=== PATIENT | female | born 1995 | race Two or more races ===

== ENCOUNTER 2018-05-17 12:14 | Emergency (ER) | payer MEDICAID ==
[~2018-05-17] VITALS: Ht 160 cm; Wt 127.0 kg
[2018-05-17] MEDS ORDERED: ACETAMINOPHEN 500 MG TABLET PO ONE (13:00)
[2018-05-17] MEDS ORDERED: IV NORMAL SALINE 1000ML BAG 1,000 ML IV ONE (13:00)
[2018-05-17] MEDS ORDERED: ONDANSETRON PF 4 MG/2 ML VIAL. IV ONE (13:00)
[2018-05-17 13:05] LABS: BASO # 0.1 x10^3/uL (0.0-0.2); BASO % 1 % (0-3); EOS # 0.1 x10^3/uL (0.0-0.7); EOS % 1 % (0-3); HEMATOCRIT 40.3 % (36.0-47.0); HEMOGLOBIN 13.6 g/dL (12.0-15.5); LYMPH # 2.2 x10^3/uL (1.0-4.8); LYMPH % 27 % (24-48); MEAN CORPUSCULAR HEMOGLOBIN 26 pg (25-35); MEAN CORPUSCULAR HGB CONC 34 g/dL (31-37); MEAN CORPUSCULAR VOLUME 76 fL (79-100); MONO # 0.4 x10^3/uL (0.0-1.1); MONO % 5 % (0-9); NEUT # 5.6 x10^3uL (1.8-7.7); NEUT % 67 % (31-73); PLATELET COUNT 142 x10^3/uL (140-400); RED BLOOD COUNT 5.28 x10^6/uL (3.50-5.40); RED CELL DISTRIBUTION WIDTH 17.2 % (11.5-14.5); WHITE BLOOD COUNT 8.4 x10^3/uL (4.0-11.0)
[2018-05-17 13:07] LABS: BILIRUBIN,URINE NEGATIVE (NEG); CLARITY,URINE CLEAR; COLOR,URINE YELLOW; NITRITE,URINE NEGATIVE (NEG); PH,URINE 5.5; PROTEIN,URINE NEGATIVE (NEG-TRACE); UROBILINOGEN,URINE 0.2 mg/dL (0.2 mg/dL)
--- NOTE | 2018-05-17 13:09 | PHYS DOC ---
Past Medical History Past Medical History: No Pertinent History Past Surgical History: Alcohol Use: None Drug Use: Marijuana Adult General Chief Complaint Chief Complaint: VAGINAL BLEEDING [facility] HPI Patient is a 22 year old female who presents the emergency room with a chief complaint of "I've been bleeding since by ". She had a Yun she said she's been bleeding anywhere from 2-4 pads every single day for several months she is coming in today because she has a sensation of some burning pain she says in her entire body from her toes up to her neck she has intermittent nausea she has intermittent back pain she is really just frustrated with how she's been feeling. She last saw her radio adjuster 6 weeks after the and they said that the bleeding should stop but has not done so. Review of Systems Review of Systems Constitutional: Denies fever or chills [] Eyes: Denies change in visual acuity, redness, or eye pain [] HENT: Denies nasal congestion or sore throat [] Respiratory: Denies cough or shortness of breath [] Cardiovascular: No additional information not addressed in HPI [] Patient endorses easy bruising she says when her baby touches her arm she bruises Musculoskeletal: Integument: Denies rash or skin lesions [] Neurologic: Denies headache, focal weakness or sensory changes [] All other systems were reviewed and found to be within normal limits, except as documented in this note. Current Medications Current Medications Current Medications Medications (Trade) Dose Ordered Sig/Cherie Start Time Stop Time Status Last Admin Dose Admin Acetaminophen (Tylenol) 1,000 mg 1X ONCE 05/17/18 13:00 05/17/18 13:01 DC 05/17/18 13:06 1,000 MG Ondansetron HCl (Zofran) 4 mg 1X ONCE 05/17/18 13:00 05/17/18 13:01 DC 05/17/18 13:06 4 MG Sodium Chloride 1,000 ml @ 1,000 mls/hr 1X ONCE 05/17/18 13:00 05/17/18 13:59 DC 05/17/18 13:07 1,000 MLS/HR Allergies Allergies Allergies Coded Allergies Type Severity Reaction Last Updated Verified No Known Allergies Allergy Unknown 05/17/18 Yes Physical Exam Physical Exam Constitutional: Well developed, well nourished, no acute distress, non-toxic appearance. [] HENT: Normocephalic, atraumatic, bilateral external ears normal, oropharynx moist, no oral exudates, nose normal. [] Eyes: PERRLA, EOMI, conjunctiva normal, no discharge. [] Neck: Normal range of motion, no tenderness, supple, no stridor. [] Pulmonary: Normal respiratory effort no increased work of breathing no obvious chest wall trauma Abdomen: Bowel sounds normal, soft, no tenderness, no masses, no pulsatile masses. [] Skin: Warm, dry, no erythema, no rash. [] Back: No tenderness, no CVA tenderness. [] exam Limited visualization of the cervix due to patient not wanting to be in the stirrups. There were some old blood in the vaginal vault. no signs of pus or exudate. pt is overall well appering. Extremities: No tenderness, no cyanosis, no clubbing, ROM intact, no edema. [] Neurologic: Alert and oriented X 3, normal motor function, normal sensory function, no focal deficits noted. [] Psychologic: Affect normal, judgement normal, mood normal. [] Current Patient Data Vital Signs Vital Signs Date Time Temp Pulse Resp B/P (MAP) Pulse Ox O2 Delivery O2 Flow Rate FiO2 05/17/18 13:30 56 17 126/89 (101) 98 Room Air 05/17/18 12:15 98.4 98.4 Lab Values Laboratory Tests Test 05/17/18 12:25 05/17/18 12:30 POC Urine HCG, Qualitative Hcg negative (Negative) White Blood Count 8.4 x10^3/uL (4.0-11.0) Red Blood Count 5.28 x10^6/uL (3.50-5.40) Hemoglobin 13.6 g/dL (12.0-15.5) Hematocrit 40.3 % (36.0-47.0) Mean Corpuscular Volume 76 fL (79-100) L Mean Corpuscular Hemoglobin 26 pg (25-35) Mean Corpuscular Hemoglobin Concent 34 g/dL (31-37) Red Cell Distribution Width 17.2 % (11.5-14.5) H Platelet Count 142 x10^3/uL (140-400) Neutrophils (%) (Auto) 67 % (31-73) Lymphocytes (%) (Auto) 27 % (24-48) Monocytes (%) (Auto) 5 % (0-9) Eosinophils (%) (Auto) 1 % (0-3) Basophils (%) (Auto) 1 % (0-3) Neutrophils # (Auto) 5.6 x10^3uL (1.8-7.7) Lymphocytes # (Auto) 2.2 x10^3/uL (1.0-4.8) Monocytes # (Auto) 0.4 x10^3/uL (0.0-1.1) Eosinophils # (Auto) 0.1 x10^3/uL (0.0-0.7) Basophils # (Auto) 0.1 x10^3/uL (0.0-0.2) Prothrombin Time 12.1 SEC (11.7-14.0) Prothrombin Time INR 0.9 (0.8-1.1) Urine Collection Type Unknown Urine Color Yellow Urine Clarity Clear Urine pH 5.5 Urine Specific [place] 1.020 Urine Protein Negative mg/dL (NEG-TRACE) Urine Glucose (UA) Negative mg/dL (NEG) Urine Ketones (Stick) Negative mg/dL (NEG) Urine Blood Large (NEG) Urine Nitrite Negative (NEG) Urine Bilirubin Negative (NEG) Urine Urobilinogen Dipstick 0.2 mg/dL (0.2 mg/dL) Urine Leukocyte Esterase Negative (NEG) Urine RBC 1-2 /HPF (0-2) Urine WBC 1-4 /HPF (0-4) Urine Squamous Epithelial Cells Mod /LPF Urine Bacteria Few /HPF (0-FEW) Urine Mucus Marked /LPF Sodium Level 138 mmol/L (136-145) Potassium Level 3.8 mmol/L (3.5-5.1) Chloride Level 102 mmol/L (98-107) Carbon Dioxide Level 25 mmol/L (21-32) Anion Gap 11 (6-14) Blood Urea Nitrogen 9 mg/dL (7-20) Creatinine 0.8 mg/dL (0.6-1.0) Estimated GFR (Cockcroft-Gault) 89.7 BUN/Creatinine Ratio 11 (6-20) Glucose Level 87 mg/dL (70-99) Calcium Level 9.3 mg/dL (8.5-10.1) Total Bilirubin 0.4 mg/dL (0.2-1.0) Aspartate Amino Transferase (AST) 20 U/L (15-37) Alanine Aminotransferase (ALT) 31 U/L (14-59) Alkaline Phosphatase 64 U/L (46-116) Total Protein 7.7 g/dL (6.4-8.2) Albumin 3.8 g/dL (3.4-5.0) Albumin/Globulin Ratio 1.0 (1.0-1.7) Laboratory Tests 05/17/18 12:30 Laboratory Tests 05/17/18 12:30 Microbiology 05/17/18 Wet Prep - Final, Complete EKG EKG [] Radiology/Procedures Radiology/Procedures [] Impressions: Impression: 1. Endometrial thickness is within normal limits, no hypervascularity. Neither ovary could be visualized on this exam. Electronically signed by: Martínez Allen MD (05/17/2018 1:43 PM) [id number] DICTATED and SIGNED BY: MARTÍNEZ ALLEN MD DATE: 05/17/18 4238 Course & Med Decision Making Course & Med Decision Making Pertinent Labs and Imaging studies reviewed. (See chart for details) []Irregular menstrual bleeding following recent c section. u/s labs, trreat symptoms r/o . The workup was essentially negative there is no signs of active bleeding she has some scattered old blood in her vaginal vault. wet prep negative. pt was reassured She Mr. Braga shot last month this could be part of the recommended that she follow-up with her radio adjuster. Dragon Disclaimer Dragon Disclaimer This electronic medical record was generated, in whole or in part, using a voice recognition dictation system. Departure Departure Impression: Primary Impression: Dysfunctional uterine bleeding Disposition: HOME, SELF-CARE Condition: STABLE Referrals: NO PCP (PCP) JAMI LAN MD May 17, 2018 13:09
[2018-05-17 13:17] LABS: SQUAMOUS EPITHELIAL CELL,UR MOD /LPF
[2018-05-17 13:18] LABS: BACTERIA,URINE FEW /HPF (0-FEW)
[2018-05-17 13:20] LABS: PROTHROMBIN TIME PATIENT 12.1 SEC (11.7-14.0)
[2018-05-17 13:24] LABS: CALCIUM 9.3 mg/dL (8.5-10.1); CREATININE 0.8 mg/dL (0.6-1.0); GFR 89.7; POTASSIUM 3.8 mmol/L (3.5-5.1)
[2018-05-17 13:30] VITALS: BP 126/89
[2018-05-17 13:31] LABS: ALBUMIN 3.8 g/dL (3.4-5.0); TOTAL BILIRUBIN 0.4 mg/dL (0.2-1.0); TOTAL PROTEIN 7.7 g/dL (6.4-8.2)
--- NOTE | 2018-05-17 13:48 | RAD ---
PELVIS W/TV History: 01/25/2018, vaginal bleeding, 01/25/2018 Comparison: None. Findings: Multiple transabdominal sonographic images of the pelvis are submitted. Uterus measured 8.6 x 5.2 x 4.8 cm. Ovaries are not well visualized due to bowel gas. Transvaginal ultrasound: Multiple transvaginal sonographic images of the pelvis are similar. Endometrium is within normal limits about 0.5 cm in thickness. No hypervascularity is demonstrated of the endometrium. Neither ovary could be visualized. No free fluid is demonstrated. Impression: 1. Endometrial thickness is within normal limits, no hypervascularity. Neither ovary could be visualized on this exam. Electronically signed by: Rj Tineo MD (05/17/2018 1:43 PM) [id number]
[2018-05-18 14:32] LABS: GC PROBE Negative (Negative)
== END 2018-05-17 14:45 | disposition home or self-care (01) ==
LOC: ER 12:14
DX: N93.8 Other specified abnormal uterine and vaginal bleeding (principal)
CPT/HCPCS: 36415; 76830; 76856; 80053; 81001; 81025; 85025; 85610; 87491; 87591; 96374; 99284; J2405; J7030; Q0111